=== PATIENT | male | born 1950 | race Caucasian/White ===

== ENCOUNTER 2021-03-10 07:48 | Emergency (ER) | payer MEDICARE, SELFPAY ==
--- NOTE | 2021-03-10 08:11 | ED_ITS ---
HPI - Abdominal Pain General Chief Complaint: Abdominal Pain Stated Complaint: Right side abd interm. pain w/food x5 days Time Seen by Provider: 03/10/21 07:52 Source: patient and other (Dr. Milner) Mode of arrival: Ambulatory Limitations: no limitations History of Present Illness HPI narrative: This is a 70-year-old male comes emergency department for 5 days of right flank pain that radiates down to the testicle on the right. Patient states pain came on somewhat suddenly. He felt nauseated and forced himself to vomit by sticking his finger down his throat 2 or 3 times the 1st day. He states he isn't really nauseated anymore. He does note that when he eats it seems to make the pain worse. Patient does not have any abdominal pain in the anterior position. Patient has noted he has been a little constipated in his stools have been hard but he has been having bowel movements. Patient has had frequency overnight. But he has been drinking a lot of water. He denies any dysuria or incontinence. Patient was seen on the [facility] and had a point of care urine which did show hematuria. He has been taking Lomotil for pain which seems to be helpful for his pain but has made him constipated. Dr. Milner called myself yesterday with plan for patient to come in the evening for evaluation but patient elected to come today secondary to lack of transportation back to the [place] overnight. He has been afebrile. He defers any pain medications. Patient denies any past medical history. No prior surgeries. Patient denies any allergies to medications. No tobacco, rare alcohol, no illicit except for occasional CBD/THC. He lives on [place]. Related Data Previous Rx's Medication Instructions Recorded tamsulosin 0.4 mg capsule (Flomax) 0.4 mg PO DAILY #7 cap 03/10/21 Allergies Allergy/AdvReac Type Severity Reaction Status Date / Time No Known Drug Allergies Allergy Verified 03/10/21 08:58 Review of Systems Review of Systems ROS Unobtainable: All systems reviewed & are unremarkable except as noted in HPI and below Patient History Social History Smoking Status: Never smoker Smoking Status: Never smoker alcohol intake frequency: holidays/special occasions only Substance Use Type: marijuana Exam Initial Vital Signs Initial Vital Signs: Vital Signs Temperature 97.4 F L 03/10/21 08:31 Pulse Rate 78 03/10/21 08:31 Respiratory Rate 21 03/10/21 08:31 Blood Pressure 187/88 H 03/10/21 08:31 Pulse Oximetry 98 03/10/21 08:31 GENERAL: Alert and oriented x three, male in mild distress. HEENT: Head normocephalic, atraumatic, EOMI, pupils reactive, face symmetric, moist mucous membranes NECK: Supple, full range of motion CARDIOVASCULAR: Regular rate and rhythm without murmurs, rubs or gallops. RESPIRATORY: Breath sounds equal bilaterally, no wheezes rales or rhonchi. ABDOMEN: Soft, nontender. Normoactive bowel sounds all 4 quadrants. No guardin g or rebound, rigidity, no mass : No CVA tenderness EXTREMITIES: Normal range of motion, no clubbing or edema. Neurovascularly intact NEUROLOGICAL: Cranial nerves II through XII grossly intact. Moving all extremities SKIN: Warm, dry, no petechiae, no rashes or lesions. Course Orders Ordered: ED Orders 03/10/21 08:25 Complete Blood Count AUTO DIFF Stat Comprehensive Metabolic Panel Stat Lipase Stat 03/10/21 08:30 CT abdomen pelvis wo con Stat 03/10/21 09:54 Urine Microscopic Stat Discontinued Medications Sodium Chloride (Normal Saline 0.9%) 1,000 mls @ 1,000 mls/hr IV BOLUS ONE Stop: 03/10/21 09:25 Last Infusion: 03/10/21 10:13 Dose: 0 mls/hr Documented by: JUAN CARLOS Admin: 03/10/21 08:58 Dose: 1,000 mls/hr Documented by: JUAN CARLOS Tamsulosin HCl (Tamsulosin 0.4 Mg Capsule) 0.4 mg PO NOW ONE Stop: 03/10/21 10:37 Last Admin: 03/10/21 11:06 Dose: 0.4 mg Documented by: JUAN CARLOS Consultations Consultation #1: Dr. Crenshaw with urology of [facility], he recommend patient had a renal stent. He does recommend transfer and would happy to see the patient there. Vital Signs Vital signs: Vital Signs - 8 hr 03/10/21 08:31 03/10/21 11:09 03/10/21 11:10 Temperature 97.4 F L Pulse Rate 78 79 79 Respiratory Rate 21 Blood Pressure 187/88 H 195/87 H Pulse Oximetry 98 98 99 03/10/21 12:45 Temperature 98.1 F Pulse Rate 78 Respiratory Rate 16 Blood Pressure 178/79 H Pulse Oximetry 98 MDM - Abdominal Pain Lab Data Result diagrams: 03/10/21 08:25 03/10/21 08:25 Labs: Lab Results 03/10/21 03/10/21 03/10/21 Range/Units 08:25 08:25 09:54 WBC 10.5 (4.5-11.0) X10^3/uL RBC 4.62 (4.5-5.9) X10^6/uL Hgb 14.8 (13.5-17.5) g/dL Hct 43.1 (41-53) % MCV 93.3 (80-100) fL MCH 32.0 (26-34) PG MCHC 34.3 (30-36) % RDW 12.7 (11.6-14.8) % Plt Count 198 (150-400) X10^3/uL Neut % (Auto) 75.9 H (50-75) % Lymph % (Auto) 13.1 L (25-40) % Bath % (Auto) 8.1 (3-14) % Eos % (Auto) 2.2 (2-4) % Baso % (Auto) 0.7 (0-2) % Neut # (Auto) 7900 H (1928-6506) /uL Lymph # (Auto) 1400 (4767-3532) /uL Bath # (Auto) 800 (0-900) /uL Eos # (Auto) 200 (0-450) /uL Baso # (Auto) 100 (0-100) /uL Sodium 138 (137-145) mmol/L Potassium 4.5 (3.4-5.1) mmol/L Chloride 104 (98-107) mmol/L Carbon Dioxide 28 (22-32) mmol/L BUN 24 H (9-20) mg/dL Creatinine 1.68 H (0.66-1.25) mg/dL Estimated GFR 40.6 L (>60) mL/min BUN/Creatinine Ratio 14.3 (6-22) Glucose 122 H (80-110) mg/dL Calcium 9.6 (8.4-10.2) mg/dL Total Bilirubin 1.0 (0.2-1.3) mg/dL AST 35 (17-59) IU/L ALT 51 H (<50) IU/L Alkaline Phosphatase 81 (38-126) U/L Total Protein 7.5 (6.3-8.2) g/dL Albumin 4.0 (3.5-5.0) g/dL Globulin 3.5 (1.7-4.1) g/dL Albumin/Globulin Ratio 1.1 (1.0-2.8) Lipase 24 (23-300) U/L Urine RBC 0-1/hpf (0-5/HPF) Urine WBC 0-1/hpf (0-5/HPF) Ur Squamous Epith Cells 0-1 /hpf (0-5/HPF) Urine Bacteria Few (2-10) H (None) Ur Culture Indicated? Cult not indicated SARS-CoV-2 (PCR) 03/10/21 Range/Units Unknown WBC (4.5-11.0) X10^3/uL RBC (4.5-5.9) X10^6/uL Hgb (13.5-17.5) g/dL Hct (41-53) % MCV (80-100) fL MCH (26-34) PG MCHC (30-36) % RDW (11.6-14.8) % Plt Count (150-400) X10^3/uL Neut % (Auto) (50-75) % Lymph % (Auto) (25-40) % Bath % (Auto) (3-14) % Eos % (Auto) (2-4) % Baso % (Auto) (0-2) % Neut # (Auto) (0939-0037) /uL Lymph # (Auto) (0953-8912) /uL Bath # (Auto) (0-900) /uL Eos # (Auto) (0-450) /uL Baso # (Auto) (0-100) /uL Sodium (137-145) mmol/L Potassium (3.4-5.1) mmol/L Chloride (98-107) mmol/L Carbon Dioxide (22-32) mmol/L BUN (9-20) mg/dL Creatinine (0.66-1.25) mg/dL Estimated GFR (>60) mL/min BUN/Creatinine Ratio (6-22) Glucose (80-110) mg/dL Calcium (8.4-10.2) mg/dL Total Bilirubin (0.2-1.3) mg/dL AST (17-59) IU/L ALT (<50) IU/L Alkaline Phosphatase (38-126) U/L Total Protein (6.3-8.2) g/dL Albumin (3.5-5.0) g/dL Globulin (1.7-4.1) g/dL Albumin/Globulin Ratio (1.0-2.8) Lipase (23-300) U/L Urine RBC (0-5/HPF) Urine WBC (0-5/HPF) Ur Squamous Epith Cells (0-5/HPF) Urine Bacteria (None) Ur Culture Indicated? SARS-CoV-2 (PCR) Cancelled Point of care testing: Urine Dip Bedside Urine Glucose Negative Bedside Urine Bilirubin - Negative Bedside Urine Ketone - Negative Urine Specific [place] 1.020 Bedside Urine Occult Blood - Negative Bedside Urine pH 6.0 Bedside Urine Protein - Negative Bedside Urine Urobilinogen +/- 1mg Bedside Urine Nitrite - Negative Bedside Urine Leukocytes - Negative Esterase Imaging Data CT scan - abdomen/pelvis: Radiologist's Impression: [address] [id number] Scan ReportSigned Patient: Ming Bustamante EMR#: [id number]: [id number]:[id number]/Sex: 70 / MDate of Service: 03/10/21Loc: EDAccession Number: [id number] Procedure: CT abdomen pelvis wo con Ordering Provider: Maria Antonia Shannon D.O. PROCEDURE: CT ABDOMEN PELVIS WO CON INDICATIONS: right flank pain radiate to testicle, worse w/ food TECHNIQUE: Noncontrast 5 mm thick sections acquired from the diaphragms to the symphysis. 5 mm coronal and sagittal reformats were then performed. For radiation dose reduction, the following was used: automated exposure control, adjustment of mA and/or kV according to patient size. COMPARISON: None. FINDINGS: Image quality: Excellent. ABDOMEN: Lung bases: Lung bases are clear. Heart size is normal. Solid organs: Liver is normal in size. Gallbladder is unremarkable. Pancreas is normal in contours. Spleen is normal in size. No adrenal nodules. Right kidney: [id number] hydronephrosis. Perinephric stranding. No residual renal stone. Right ureter: Mildly dilated to the level of just above the ureterovesical junction where there is obstruction by a 3 mm stone. There is stranding throughout the course of the ureter suggesting possible calyceal rupture. Left kidney: No stone or hydronephrosis. Left ureter: Unremarkable. Peritoneum and bowel: Unenhanced bowel loops demonstrate normal wall thickness and caliber. No free fluid or air. There is haziness of the mesentery likely indicating sequelae of previous inflammation. There is associated mild prominence of multiple mesenteric lymph nodes, which are likely reactive. Mild sigmoid diverticulosis. Normal appendix. Nodes and vessels: No retroperitoneal or mesenteric adenopathy by size criteria . Aorta and inferior vena cava are normal in caliber. Miscellaneous: No ventral hernias. PELVIS: Genitourinary: Mild diffuse bladder wall thickening. Enlarged prostate. Miscellaneous: No inguinal hernias or adenopathy. Bones: No suspicious bony lesions. No vertebral body compression fractures. Lumbar degenerative change. IMPRESSION: 1. A 3 mm stone obstructs the distal right ureter resulting in [id number] right hydronephrosis. There is a question of calyceal rupture, as there is perinephric stranding and stranding along the course of the ureter. 2. Mild diffuse bladder wall thickening is likely secondary to bladder outlet obstruction. 3. Appearance of the mesentery is consistent with an inflammatory process of unknown chronicity. This is commonly an appearance secondary to previous inflammation. Dictated by: Linwood Cardozo M.D. on 03/10/2021 at 8:52 Approved by: Linwood Cardozo M.D. on 03/10/2021 at 9:00 [facility] Narrative Medical decision making narrative: This is a 70-year-old male with pattern of pain that seems consistent with a kidney stone although he does note that his symptoms are worse after he eats which is atypical. Patient has had 5 days of pain. He is not in significant distress here in the department. Labs, urine and CT KUB were ordered for further evaluation. Patient has a 3 mm right kidney stone, he also has what appears to be a calyceal rupture. Urine shows bacteria but no other infection. Patient's creatinine is 1.6 unclear if this is an increase or at his baseline but I would suspect an increase. Discussed at length with patient. The patient does not wish to be transferred to [facility] or their surrounding facilities. All local facilities that have Urology available are full currently. We do not have Urology available today. Patient elects to return home at this time. He was encouraged to see urology in the next 24 hours or sooner. Patient is aware that he could become significantly sick possibly daughter if this is not treated. He was given referral to Urology [facility] as well as locally. Patient was given a prescription for Flomax. He was told he can return at any time. He was also asked to follow up with Dr. Milner in the next 24 hours he does not go to see Urology ago different facility to see Urology so that he can be rechecked. Discharge Plan Departure Patient Disposition: Left Against Medical Advice Clinical Impression: Kidney stone on right side Instructions: DI for Kidney Stones Activity Restrictions/Additional Instructions: You do need to see Urology. Referral is included below for both local urology which is unavailable today and urology at [facility]. Dr. Crenshaw urology at [facility] recommend that you have a stent to allow urine to drain from her kidney. You could have worsening renal failure if you do not get this. Your imaging today shows a 3 mm stone obstructing the right ureter with some moderate hydronephrosis. There is a possible calyceal rupture bleeding urine is leaking. Your creatinine or renal function today is 1.6, this is abnormal but I do not know which are normal baseline renal function. Take Flomax once daily. Please return for fevers, new or worsening abdominal or flank pain, lightheadedness or passing out, persistent vomiting, difficulty or inability urinate or other new or concerning symptoms. Prescriptions: New tamsulosin [Flomax] 0.4 mg capsule 0.4 mg PO DAILY Qty: 7 RF: 0 Referrals: Patricia Acuna MD [Physician] - Silver Crenshaw MD [Non-Staff] - Maximilian Milner MD [Primary Care Provider] - Stand Alone Forms: Against Medical Advice
--- NOTE | 2021-03-10 08:30 | DI.CT.S_ITS ---
PROCEDURE: CT ABDOMEN PELVIS WO CON INDICATIONS: right flank pain radiate to testicle, worse w/ food TECHNIQUE: Noncontrast 5 mm thick sections acquired from the diaphragms to the symphysis. 5 mm coronal and sagittal reformats were then performed. For radiation dose reduction, the following was used: automated exposure control, adjustment of mA and/or kV according to patient size. COMPARISON: None. FINDINGS: Image quality: Excellent. ABDOMEN: Lung bases: Lung bases are clear. Heart size is normal. Solid organs: Liver is normal in size. Gallbladder is unremarkable. Pancreas is normal in contours. Spleen is normal in size. No adrenal nodules. Right kidney: [id number] hydronephrosis. Perinephric stranding. No residual renal stone. Right ureter: Mildly dilated to the level of just above the ureterovesical junction where there is obstruction by a 3 mm stone. There is stranding throughout the course of the ureter suggesting possible calyceal rupture. Left kidney: No stone or hydronephrosis. Left ureter: Unremarkable. Peritoneum and bowel: Unenhanced bowel loops demonstrate normal wall thickness and caliber. No free fluid or air. There is haziness of the mesentery likely indicating sequelae of previous inflammation. There is associated mild prominence of multiple mesenteric lymph nodes, which are likely reactive. Mild sigmoid diverticulosis. Normal appendix. Nodes and vessels: No retroperitoneal or mesenteric adenopathy by size criteria. Aorta and inferior vena cava are normal in caliber. Miscellaneous: No ventral hernias. PELVIS: Genitourinary: Mild diffuse bladder wall thickening. Enlarged prostate. Miscellaneous: No inguinal hernias or adenopathy. Bones: No suspicious bony lesions. No vertebral body compression fractures. Lumbar degenerative change. IMPRESSION: 1. A 3 mm stone obstructs the distal right ureter resulting in [id number] right hydronephrosis. There is a question of calyceal rupture, as there is perinephric stranding and stranding along the course of the ureter. 2. Mild diffuse bladder wall thickening is likely secondary to bladder outlet obstruction. 3. Appearance of the mesentery is consistent with an inflammatory process of unknown chronicity. This is commonly an appearance secondary to previous inflammation. Dictated by: Linwood Cardozo M.D. on 03/10/2021 at 8:52 Approved by: Linwood Cardozo M.D. on 03/10/2021 at 9:00
[2021-03-10 08:31] VITALS: BP 187/88; PULSE 78; RESP 21; TEMP 36.3; O2SAT 98; BMI 35.3
[2021-03-10 08:35] LABS: Add Manual Diff / Slide Review NO; Basophils Absolute Auto 100 /uL (0-100); Basophils Percent Auto 0.7 % (0-2); Eosinophils Absolute Auto 200 /uL (0-450); Eosinophils Percent Auto 2.2 % (2-4); Hematocrit 43.1 % (41-53); Hemoglobin 14.8 g/dL (13.5-17.5); Lymphocytes Absolute Auto 1400 /uL (1100-4500); Lymphocytes Percent Auto 13.1 % (25-40); Mean Corpuscular HGB Conc 34.3 % (30-36); Mean Corpuscular Volume 93.3 fL (80-100); Monocytes Absolute Auto 800 /uL (0-900); Monocytes Percent Auto 8.1 % (3-14); Neutrophils Absolute Auto 7900 /uL (1500-7000); Neutrophils Percent Auto 75.9 % (50-75); Platelet Count 198 X10^3/uL (150-400); Red Blood Cell Count 4.62 X10^6/uL (4.5-5.9); Red Cell Distribution Width 12.7 % (11.6-14.8); White Blood Cell Count 10.5 X10^3/uL (4.5-11.0)
[2021-03-10 08:47] LABS: Alanine Aminotransferase 51 IU/L (<50); Albumin Globulin Ratio 1.1 (1.0-2.8); Alkaline Phosphatase 81 U/L (38-126); Aspartate Aminotransferase 35 IU/L (17-59); BUN Creatinine Ratio 14.3 (6-22); Blood Urea Nitrogen 24 mg/dL (9-20); Calcium 9.6 mg/dL (8.4-10.2); Carbon Dioxide 28 mmol/L (22-32); Chloride 104 mmol/L (98-107); Estimated Glomerular Filt Rate 40.6 mL/min (>60); Globulin 3.5 g/dL (1.7-4.1); Glucose 122 mg/dL (80-110); HEMOLYSIS < 15 (0-50); Lipase 24 U/L (23-300); Potassium 4.5 mmol/L (3.4-5.1); Sodium 138 mmol/L (137-145); Total Protein 7.5 g/dL (6.3-8.2)
[2021-03-10] MEDS: SODIUM CHLORIDE 0.9% 1,000 ML 1000 ML IV (08:58)
[2021-03-10 10:07] LABS: Bacteria Urine Few (2-10); Culture Indicated Urine Cult Not Indicated; RBC Urine 0-1/HPF (0-5/HPF); Squamous Epithelial Cell Urine 0-1 /HPF (0-5/HPF); WBC Urine 0-1/HPF (0-5/HPF)
[2021-03-10] MEDS: TAMSULOSIN 0.4 MG CAPSULE PO (11:06)
[2021-03-10 11:09] VITALS: PULSE 79; O2SAT 98
[2021-03-10 11:10] VITALS: BP 195/87; PULSE 79; O2SAT 99
[2021-03-10 12:45] VITALS: BP 178/79; PULSE 78; RESP 16; TEMP 36.7; O2SAT 98
== END 2021-03-10 12:48 | disposition left against medical advice (07) ==
PROVIDERS: Emergency Provider Emergency Medicine; Family Provider Family Medicine; PCP Family Medicine
DX: N20.0 Calculus of kidney (principal); R11.2 Nausea with vomiting, unspecified
CPT/HCPCS: 36415; 74176; 80053; 81003; 81015; 83690; 85025; 96360; 99284